=== PATIENT | male | born 1990 | race Caucasian/White ===

== ENCOUNTER 2020-02-08 17:54 | Emergency (ER) | payer OTHER ==
[2020-02-08 17:59] VITALS: BP 142/76
--- NOTE | 2020-02-08 18:14 | ER Document Report ---
HPI - HPI Patient complains to provider of: LEFT FOOT PUNCTURE WOUND Time Seen by Provider: 02/08/20 18:04 Onset: Just prior to arrival Onset/Duration: Sudden Quality of pain: Achy Pain Level: 3 Context: 29-year-old healthy [employer] presents emergency department with a puncture wound to the medial side of his left foot. Patient reports a thorn went in the medial side of his left foot. He reports it was approximately 2 to 3 inches long the size of a nail. Patient reports he immediately pulled it out cleaned his foot with peroxide. He reports now having severe pain difficulty walking due to the pain. Has not taken anything for pain. Reports his tetanus is up-to-date. Associated Symptoms: None Exacerbated by: Walking Relieved by: Denies Similar symptoms previously: No Recently seen / treated by doctor: No - CONSTITUTIONAL Constitutional: DENIES: Fever, Chills - MUSCULOSKELETAL Musculoskeletal: REPORTS: Extremity pain - DERM Skin Color: Normal Past Medical History - General Information source: Patient - Social History Smoking Status: Current Every Day Smoker Cigarette use (# per day): Yes Frequency of alcohol use: Social Drug Abuse: None Occupation: [employer] – [place] Family History: None Patient has suicidal ideation: No Patient has homicidal ideation: No - Medical History Medical History: Negative Surgical Hx: Negative - Immunizations Immunizations up to date: Yes Hx Diphtheria, Pertussis, Tetanus Vaccination: Yes Vertical Provider Document - CONSTITUTIONAL Agree With Documented VS: Yes Exam Limitations: No Limitations General Appearance: WD/WN, No Apparent Distress - HEENT HEENT: Atraumatic, Normocephalic - NECK Neck: Supple - RESPIRATORY Respiratory: No Respiratory Distress - CARDIOVASCULAR Cardiovascular: Regular Rate - MUSCULOSKELETAL/EXTREMETIES Musculoskeletal/Extremeties: MAEW, FROM, Tender - PUNCTURE WOUND TO MEDIAL LEFT FOOT, no erythema no swelling no obvious foreign body. Pedal pulse STRONG +3, cap refill less than 2 seconds, patient reports plantar area very tender to palpate - NEURO Level of Consciousness: Awake, Alert, Appropriate Motor/Sensory: No Motor Deficit - DERM Integumentary: Warm, Dry Course - Re-evaluation Re-evalutation: 02/08/20 18:12 29-year-old male presents with puncture wound to the left side of his left foot. He was offered Motrin and declined. Ultrasound ordered to check for foreign body. 02/08/20 19:05 Extremity Ultrasound 02/08/20 18:08 IMPRESSION: No foreign body was seen. No foreign body noted. Patient cleaned his foot well. Dressing applied patient was given crutches and placed on Keflex. He was instructed on signs and symptoms of infection. Instructed to return immediately for any signs of infection. He was also instructed follow-up with his BAS for recheck. He verbalized understanding to all instructions. - Vital Signs Vital signs: Temp Pulse Resp BP Pulse Ox 98.6 F 89 18 142/76 H 97 02/08/20 17:59 02/08/20 17:58 02/08/20 17:58 02/08/20 17:58 02/08/20 17:58 - Diagnostic Test Radiology reviewed: Image reviewed, Reports reviewed Discharge - Discharge Clinical Impression: Puncture wound of left foot Qualifiers: Encounter type: initial encounter Qualified Code(s): S91.332A - Puncture wound without foreign body, left foot, initial encounter Condition: Stable Disposition: HOME, SELF-CARE Instructions: Cephalexin ([facility]), Use of Crutches ([facility]), Ibuprofen (General) ([facility]), Puncture Wound ([facility]) Additional Instructions: *You have been treated for a left foot puncture wound *No foreign body was found *Take medication as prescribed *Monitor your foot for signs of infection such as redness swelling warmth discharge, increased pain *Keep your foot clean, use the crutches *Follow up with your BAS tomorrow for recheck *Return to the emergency department immediately for signs of infection, worsening pain, concerns Monitor your blood pressure. Your blood pressure was elevated today. This may be because you were anxious, in pain or because you need medication. It is important to follow up with your primary care provider for full evaluation. Prescriptions: Cephalexin Monohydrate [Keflex 500 mg Capsule] 500 mg PO QID #20 capsule Ibuprofen [Motrin 800 mg Tablet] 800 mg PO TID #15 tablet Forms: Elevated Blood Pressure, Return to Work
--- NOTE | 2020-02-08 18:44 | RADIOLOGY REPORT (SQ) ---
EXAM DESCRIPTION: U/S EXTREMITY NONVASCULAR LTD IMAGES COMPLETED DATE/TIME: 02/08/2020 6:34 pm REASON FOR STUDY: LEFT PLANTAR FOOT, FOREIGN BODY COMPARISON: None. TECHNIQUE: Dynamic and static grayscale images acquired of the localized site of clinical concern an d recorded on PACS. Additional selected color Doppler and spectral images recorded. SITE OF CONCERN: Plantar aspect of left foot LIMITATIONS: None. FINDINGS: Imaging of the area of concern shows soft tissue edema. No foreign body was seen. IMPRESSION: No foreign body was seen. TECHNICAL DOCUMENTATION: JOB ID: [id number] 2010 [employer]- All Rights Reserved Reading location - IP/workstation name: [email or web address]
[2020-02-08] MEDS ORDERED: CEPHALEXIN 500 MG CAPSULE PO ONE (18:50)
== END 2020-02-08 19:00 | disposition home or self-care (01) ==
LOC: ER 17:54
DX: S91.332A Puncture wound without foreign body, left foot, initial encounter (principal); W26.8XXA Contact with other sharp object(s), not elsewhere classified, initial encounter; F17.210 Nicotine dependence, cigarettes, uncomplicated
CPT/HCPCS: 76882; 99283